=== PATIENT | female | born 1995 | race African-American/Black ===

== ENCOUNTER 2017-03-31 17:54 | Emergency (ER) | payer SELFPAY ==
[~2017-03-31] VITALS: Ht 167.6 cm; Wt 90.7 kg
[2017-03-31 18:15] VITALS: BP 130/60
[2017-03-31] MEDS ORDERED: NAPR500T PO (18:36)
--- NOTE | 2017-03-31 18:36 | PHYS DOC ---
Past Medical History Smokin Pack Per Day Alcohol Use: Occasionally Drug Use: Marijuana Adult General Chief Complaint Chief Complaint: CHEST WALL PAIN [facility] HPI Patient is a 22 year old female presents to the emergency department with complaints of left anterior chest pain. She states she awakened this morning and that she was pushing to get out of bed had onset of left anterior chest pain. Patient states it's worse with movement. Patient denies shortness of breath, denies lightheadedness, reports no recent surgical procedures her periods of immobilization. She denies swelling or pain to the lower extremities. Patient is laughing and joking in the emergency department, making plans to attend [facility] this evening. She is requesting a work note to excuse her from work today. Review of Systems Review of Systems Constitutional: Denies fever or chills [] Eyes: Denies change in visual acuity, redness, or eye pain [] HENT: Denies nasal congestion or sore throat [] Respiratory: Denies cough or shortness of breath, chest wall pain [] Cardiovascular: No additional information not addressed in HPI [] GI: Denies abdominal pain, nausea, vomiting, bloody stools or diarrhea [] : Denies dysuria or hematuria [] Musculoskeletal: Denies back pain or joint pain [] Integument: Denies rash or skin lesions [] Neurologic: Denies headache, focal weakness or sensory changes [] Endocrine: Denies polyuria or polydipsia [] Physical Exam Physical Exam Constitutional: Well developed, well nourished, no acute distress, non-toxic appearance. [] HENT: Normocephalic, atraumatic, bilateral external ears normal, oropharynx moist, no oral exudates, nose normal. [] Eyes: PERRLA, EOMI, conjunctiva normal, no discharge. [] Neck: Normal range of motion, no tenderness, supple, no stridor. [] Cardiovascular:Heart rate regular rhythm, no murmur [] Lungs & Thorax: Bilateral breath sounds clear to auscultation, mild tenderness to palpate at intercostal spaces 3 through 6, left sternal border. This is a same pain she experiences when she moves. Abdomen: Bowel sounds normal, soft, no tenderness, no masses, no pulsatile masses. [] Skin: Warm, dry, no erythema, no rash. [] Back: No tenderness, no CVA tenderness. [] Extremities: No tenderness, no cyanosis, no clubbing, ROM intact, no edema. [] Neurologic: Alert and oriented X 3, normal motor function, normal sensory function, no focal deficits noted. [] Psychologic: Affect normal, judgement normal, mood normal. [] EKG EKG [] Radiology/Procedures Radiology/Procedures [] Course & Med Decision Making Course & Med Decision Making Pertinent Labs and Imaging studies reviewed. (See chart for details) []There is no historical or physical exam findings that would indicate a need to consider further evaluate patient for pulmonary embolism at this time. I am no longer considering pulmonary embolism in the differential diagnosis. I've applied a properly developed and validated evidence a stent risk stratification protocol to this patient's presentation. I've identified the patient as a low risk for PE via the right distal based on the patient's history and physical exam or through the application of the [place] PE rule. Having determined that the patient's low risk for PE based on the above, I applied the park scoring schedule. 7 of the 8 per criteria are negative. Age less than 50, pulse less than 100, saturation greater than 94%, no unilateral leg swelling, no hemoptysis , no recent trauma or surgery, no prior PE or DVT. Patient is currently using Implanon as control. Patient's process the patient is very low risk for PE with a less than 2% chance of having a pulmonary embolism. I believe an alternative diagnosis to be at least as likely as DVT. Dragon Disclaimer Dragon Disclaimer This electronic medical record was generated, in whole or in part, using a voice recognition dictation system. Departure Departure Impression: Primary Impression: Anterior chest wall pain Disposition: 01 HOME, SELF-CARE Condition: STABLE Referrals: [facility] Patient Instructions: Chest Wall Pain Additional Instructions: Moist heat to affected area. Return to the emergency Department for new symptoms or concerns or worsening of current condition. Scripts Naproxen (NAPROSYN) 500 Mg Tablet 500 MG PO BID Y for PAIN, #20 TAB Prov: ARYAN OCASIO APRN 03/31/17 ARYAN OCASIO APRN Mar 31, 2017 18:36
== END 2017-03-31 18:48 | disposition home or self-care (01) ==
LOC: ER 17:54
DX: R07.89 Other chest pain (principal); F17.200 Nicotine dependence, unspecified, uncomplicated
CPT/HCPCS: 99282